=== PATIENT | male | born 1985 | race Caucasian/White ===

== ENCOUNTER 2022-01-25 22:23 | Emergency (ER) | payer MEDICAID ==
[2022-01-25 22:36] VITALS: BP 170/100; PULSE 78; O2SAT 100
[2022-01-25] MEDS ORDERED: KEFLEX 500 MG PO ONE (22:44)
[2022-01-25] MEDS ORDERED: KEFLEX 500 MG ONE (22:48)
--- NOTE | 2022-01-25 22:49 | ERPHSYRPT ---
- History of Present Illness Time Seen by Provider: 01/25/22 22:40 Source: patient Exam Limitations: no limitations Patient Subjective Stated Complaint: pt states "I have a bad tooth and it really has gotten bad the last couple days. I don't want anything for pain cause I used to be in drugs really bad." Triage Nursing Assessment: Pt alert and oriented x3, pt ambulatory to bed by self, pt c/o L upper tooth ache x2 days, pt's left side of face is swollen, pt does not want any thing for pain. pt states "I am just here for some antiobiotics." Physician History: This is a 36-year-old white male who has left upper incisor teeth dental caries and dental pain. This episode came on approximately 2 days ago and is worsened. This morning he noticed some swelling of his left cheek. Patient is allergic to penicillin but has had Keflex in the past without any issues. Patient does not want any narcotic pain medicine. Timing/Duration: gradual onset, days (2) Severity: mild (To moderate) Prearrival Treatment: no prearrival treatment Associated Symptoms: tooth pain (Left upper incisors) Allergies/Adverse Reactions: Penicillins Allergy (Mild, Verified 01/25/22 22:34) Hives Home Medications: Buprenorphine HCl/Naloxone HCl [Suboxone 8 mg-2 mg Sl Film] 8 mg PO DAILY 01/25/22 [History] Hx Tetanus, Diphtheria Vaccination/Date Given: Yes Hx Influenza Vaccination/Date Given: No Hx Pneumococcal Vaccination/Date Given: No Immunizations Up to Date: Yes Travel Risk - International Travel Have you traveled outside of the country in past 3 weeks: No - Coronavirus Screening Are you exhibiting any of the following symptoms?: No Close contact with a COVID-19 positive Pt in past 14-21 Days: No - Vaccine Status Have you recieved a Covid-19 vaccination: No - Review of Systems Constitutional: No Symptoms Eyes: No Symptoms Ears, Nose, & Throat: Other (Left upper incisor dental caries and pain. Left cheek swelling) Respiratory: No Symptoms Cardiac: No Symptoms Abdominal/Gastrointestinal: No Symptoms Genitourinary Symptoms: No Symptoms Musculoskeletal: No Symptoms Skin: No Symptoms Neurological: No Symptoms Psychological: No Symptoms Endocrine: No Symptoms Hematologic/Lymphatic: No Symptoms Immunological/Allergic: No Symptoms All Other Systems: Reviewed and Negative - Past Medical History Pertinent Past Medical History: No Neurological History: No Pertinent History ENT History: No Pertinent History Cardiac History: No Pertinent History Respiratory History: No Pertinent History Endocrine Medical History: No Pertinent History Musculoskeletal History: No Pertinent History GI Medical History: No Pertinent History History: No Pertinent History Psycho-Social History: No Pertinent History Male Reproductive Disorders: No Pertinent History - Past Surgical History Past Surgical History: Yes Other Surgical History: "emergency tooth surgery" per patient - Social History Smoking Status: Current every day smoker Exposure to second hand smoke: No Patient Lives Alone: No - Nursing Vital Signs Nursing Vital Signs: Initial Vital Signs Temperature 98.7 F 01/25/22 22:35 Pulse Rate 78 01/25/22 22:35 Respiratory Rate 18 01/25/22 22:35 Blood Pressure 170/100 01/25/22 22:35 O2 Sat by Pulse Oximetry 100 01/25/22 22:35 Pain Scale Pain Intensity 8 - Physical Exam General Appearance: no apparent distress, alert Eye Exam: bilateral eye: normal inspection, PERRL, EOMI Ear Exam: bilateral ear: auricle normal Nasal Exam: normal inspection Throat Exam: dental tenderness (Left upper incisors with gumline gingivitis. 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 Add Tylenol and ibuprofen for pain control. Take your antibiotics as prescribed. Follow-up with a dentist for definitive care. Prescriptions: Cephalexin Mh 500 mg [Keflex 500 mg] 500 mg PO TID #21 cap
[2022-01-25] MEDS ORDERED: MOTRIN 600 MG PO ONE (22:53)
[2022-01-25] MEDS ORDERED: MOTRIN 600 MG ONE (22:54)
== END 2022-01-25 23:02 | disposition home or self-care (01) ==
LOC: ED 22:23
DX: K02.9 Dental caries, unspecified (principal); K08.89 Other specified disorders of teeth and supporting structures; Z72.0 Tobacco use; Z79.891 Long term (current) use of opiate analgesic; Z28.310 Unvaccinated for COVID-19
CPT/HCPCS: 99282; A9270-GY

== ENCOUNTER 2022-06-23 16:43 | Emergency (ER) | payer BC, MEDICAID ==
--- NOTE | 2022-06-23 17:05 | ERPHSYRPT ---
- History of Present Illness Time Seen by Provider: 06/23/22 17:05 Source: patient Exam Limitations: no limitations Patient Subjective Stated Complaint: Pt states "My lower back started to hurt a couple of days ago and now when I pee it barfield. My ears are messed up and I just feel like crap." Triage Nursing Assessment: PT presented alert and oriented X 3, skin pwd. Pt ambulates with an upright steady gait, able to speak in clear full sentences pt in no apparent respiratory distress. Pt resting comfortably on bed. Physician History: This is a 37-year-old white male patient who is on Zoloft and Suboxone and presents with a 2-day history of dysuria, bilateral flank pain/low back pain and complaints of fever chills body aches and earaches that began last night and have persisted throughout the day today despite the use of 400 mg oral ibuprofen approximately 2 hours prior to arrival. Patient arrives to the emergency department a temperature of 101 F. Patient is a current daily smoker of cigarettes. Patient states that he drove himself into the emergency department and cannot get a ride home. I obtained the history from the patient directly. Timing/Duration: day(s) (2), worse Method of Injury: other (No injury) Quality: burning Back Pain Location: paraspinous muscles (Bilateral) Severity of Pain-Max: mild (To moderate) Severity of Pain-Current: mild (To moderate) Modifying Factors: Improves With: movement Associated Symptoms: fever, chills, lower back pain, No urinary incontinence, No loss of bowel control, No nausea, No vomiting, No problems urinating, No numbness in legs/feet, No weakness Previous symptoms: no prior history Allergies/Adverse Reactions: Penicillins Allergy (Mild, Verified 01/25/22 22:34) Hives Home Medications: Buprenorphine HCl/Naloxone HCl [Suboxone 8 mg-2 mg Sl Film] 8 mg PO DAILY 01/25/22 [History] Sertraline HCl 50 mg [Zoloft 50 mg Tablet] 50 mg PO DAILY 06/23/22 [History] Hx Tetanus, Diphtheria Vaccination/Date Given: Yes Hx Influenza Vaccination/Date Given: No Hx Pneumococcal Vaccination/Date Given: No Immunizations Up to Date: Yes Travel Risk - International Travel Have you traveled outside of the country in past 3 weeks: No - Coronavirus Screening Are you exhibiting any of the following symptoms?: Yes Symptoms: Fever, Headaches/Body Aches/Fatigue Close contact with a COVID-19 positive Pt in past 14-21 Days: No - Vaccine Status Have you recieved a Covid-19 vaccination: No - Review of Systems Constitutional: Fever, Chills Eyes: No Symptoms Ears, Nose, & Throat: No Symptoms Respiratory: No Symptoms Cardiac: No Symptoms Abdominal/Gastrointestinal: No Symptoms Genitourinary Symptoms: Dysuria, Flank Pain (Bilateral) Musculoskeletal: Arthralgias, Myalgias Skin: No Symptoms Neurological: No Symptoms Psychological: No Symptoms Endocrine: No Symptoms Hematologic/Lymphatic: No Symptoms Immunological/Allergic: No Symptoms All Other Systems: Reviewed and Negative - Past Medical History Pertinent Past Medical History: No Neurological History: No Pertinent History ENT History: No Pertinent History Cardiac History: No Pertinent History Respiratory History: No Pertinent History Endocrine Medical History: No Pertinent History Musculoskeletal History: No Pertinent History GI Medical History: No Pertinent History History: No Pertinent History Psycho-Social History: No Pertinent History Male Reproductive Disorders: No Pertinent History - Past Surgical History Past Surgical History: Yes Other Surgical History: "emergency tooth surgery" per patient - Social History Smoking Status: Current every day smoker Exposure to second hand smoke: No Drug Use: none Patient Lives Alone: No - Nursing Vital Signs Nursing Vital Signs: Initial Vital Signs Temperature 101.0 F 06/23/22 16:50 Pulse Rate 91 H 06/23/22 16:50 Respiratory Rate 22 06/23/22 16:50 Blood Pressure 158/87 06/23/22 16:50 O2 Sat by Pulse Oximetry 100 06/23/22 16:50 Pain Scale Pain Intensity [Anterior/ 5 Posterior Generalized] Pain Intensity 5 - Physical Exam General Appearance: no apparent distress, alert, anxiety Eye Exam: PERRL/EOMI, eyes nml inspection Ears, Nose, Throat Exam: normal ENT inspection, moist mucous membranes Neck Exam: normal inspection, non-tender, supple, full range of motion Respiratory Exam: normal breath sounds, lungs clear, airway intact, No chest tenderness, No respiratory distress Cardiovascular Exam: regular rate/rhythm, normal heart sounds, normal peripheral pulses Gastrointestinal Exam: soft, normal bowel sounds, No tenderness Rectal Exam: not done Back Exam: normal range of motion, CVA tenderness (Mild bilateral) Extremity Exam: normal inspection, normal range of motion, pelvis stable Neurologic Exam: alert, oriented x 3, cooperative, 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 as tested, normal mood/affect, nml cerebellar function, nml station & gait, sensation nml Skin Exam: normal color, warm, dry Lymphatic Exam: No adenopathy SpO2 Interpretation: normal SpO2: 100 O2 Delivery: Room Air - Course Nursing assessment & vital signs reviewed: Yes Ordered Tests: Active Orders 24 hr Category Date Time Status CULTURE,URINE Stat Lab 06/23/22 17:55 Received UA W/RFX UR CULTURE Stat Lab 06/23/22 17:55 Completed Medication Summary Discontinued Medications Generic Name Dose Route Start Last Admin Trade Name Idania PRN Reason Stop Dose Admin Acetaminophen 650 mg 06/23/22 17:35 06/23/22 17:56 Acetaminophen 325 Mg Tablet PO 06/23/22 17:36 650 mg STAT STA Administration Acetaminophen Confirm 06/23/22 17:55 Acetaminophen 325 Mg Tablet Administered 06/23/22 17:56 Dose 650 mg .ROUTE .STK-MED ONE Ceftriaxone Sodium 1,000 mg 06/23/22 20:02 Ceftriaxone Sodium 1000 Mg Inj Vial IM 06/23/22 20:03 STAT ONE Ibuprofen 400 mg 06/23/22 17:36 06/23/22 17:56 Ibuprofen 400 Mg Tablet PO 06/23/22 17:37 400 mg STAT ONE Administration Ibuprofen Confirm 06/23/22 17:55 Ibuprofen 400 Mg Tablet Administered 06/23/22 17:56 Dose 400 mg .ROUTE .STK-MED ONE Lab/Rad Data: Laboratory Results 06/23/22 06/23/22 06/23/22 Range/Units 17:55 17:55 17:55 Urine Color Yellow (Yellow) Urine Appearance Clear (Clear) Urine pH 5.5 (4.6-8.0) Ur Specific Bentley >=1.030 A (1.005-1.030) Urine Protein 30 (Negative) Urine Glucose (UA) Negative (Negative) mg/dL Urine Ketones Trace A (Negative) Urine Blood Large A (Negative) Urine Nitrite Negative (Negative) Urine Bilirubin Negative (Negative) Urine Urobilinogen 1.0 A (0.2) mg/dL Ur Leukocyte Esterase Small A (Negative) U Hyaline Cast (Auto) NONE SEEN (0-2) /LPF Urine Microscopic RBC 21-50 A (0-5) /HPF Urine Microscopic WBC 21-50 A (0-5) /HPF Ur Epithelial Cells Few (None Seen) /HPF Urine Bacteria None Seen (None Seen) /HPF Urine Culture Reflexed YES (NO) Influenza Type A Ag NEGATIVE (NEGATIVE) Influenza Type B Ag NEGATIVE (NEGATIVE) RSV (PCR) NEGATIVE (Negative) SARS-CoV-2 (PCR) NEGATIVE (NEGATIVE) Group A Strep Antibody NOT DETECTED (NEGATIVE) - Progress Progress: improved, pain not gone completely Progress Note: 06/23/22 20:07 Medical decision making: This patient definitely has a urinary tract infection. He also has hematuria present. We will treat his urinary tract infection. He was also told that there is a possibility that he may have a ureteral stone. However, clinically, he is not acting as if he has this type of issue. The patient wants to go home after receiving injection of an antibiotic. He has family he needs to take care of and he has the only vehicle. Patient's medical issue is of low complexity. This was based on patient's history, physical findings and laboratory results. Patient is aware that there is a possibility ureteral stone his symptoms might persist or worsen. However, he does not want to have a CAT scan performed at this time. We discussed the discharge management including continue antibiotics and increase clear liquid intake orally. In addition he can alternate Tylenol and ibuprofen every 4 hours for fever and pain control. He was also told he may return to the emergency department if symptoms worsen Counseled pt/family regarding: lab results, diagnosis, need for follow-up - Departure Departure Disposition: Home Clinical Impression: UTI (urinary tract infection), Hematuria, Fever Condition: Stable Critical Care Time: No Referrals: DOCTOR,NO FAMILY [Primary Care Provider] - Follow up/PCP as directed Additional Instructions: Drink plenty of clear liquids. Alternate Tylenol and ibuprofen every 4 hours as discussed for fever and pain control. Take your antibiotic as prescribed. If your symptoms worsen, follow-up with your primary care physician or with the emergency department. Forms: Work/School Release Form Prescriptions: Ciprofloxacin [Cipro 500 MG] 500 mg PO BID #14 tablet
[2022-06-23] MEDS ORDERED: TYLENOL 325 MG PO STA (17:35)
[2022-06-23] MEDS ORDERED: MOTRIN 400 MG PO ONE (17:36)
[2022-06-23] MEDS ORDERED: MOTRIN 400 MG ONE (17:55)
[2022-06-23] MEDS ORDERED: TYLENOL 325 MG ONE (17:55)
[2022-06-23 18:27] LABS: Appearance Clear (Clear); Bacteria None Seen /HPF (None Seen); Bilirubin Negative (Negative); Blood Large (Negative); Epithelial Cells Few /HPF (None Seen); Glucose, Urine Negative (Negative); Hyaline Casts NONE SEEN /LPF (0-2); Ketones Trace (Negative); Leukocyte Esterase Small (Negative); Nitrite Negative (Negative); Ph 5.5 (4.6-8.0); Protein,Urine Dip 30 (Negative); RBC 21-50 /HPF (0-5); Specific Gravity >=1.030 (1.005-1.030); WBC 21-50 /HPF (0-5)
[2022-06-23 18:29] LABS: ADD URINE CULTURE? YES (NO)
[2022-06-23 18:46] LABS: INFLUENZA A NEGATIVE (NEGATIVE); INFLUENZA B NEGATIVE (NEGATIVE); RESPIRATORY SYNCTIAL VIRUS NEGATIVE (Negative); SARS-CoV-2 Xpert Express NEGATIVE (NEGATIVE)
[2022-06-23] MEDS ORDERED: Rocephin 1000 MG INJ IM ONE (20:02)
[2022-06-23 20:06] VITALS: BP 127/85; PULSE 73
[2022-06-23 20:11] VITALS: O2SAT 100
[2022-06-23] MEDS ORDERED: Rocephin 1000 MG INJ ONE (20:11)
[2022-06-23] MEDS ORDERED: XYLOCAINE 1% HCL 20 ML MDV ONE (20:11)
== END 2022-06-23 20:36 | disposition home or self-care (01) ==
LOC: ED 16:43
DX: N39.0 Urinary tract infection, site not specified (principal); R31.9 Hematuria, unspecified; R50.9 Fever, unspecified; R30.0 Dysuria; R10.9 Unspecified abdominal pain; M54.50 Low back pain, unspecified; Z79.891 Long term (current) use of opiate analgesic; Z28.310 Unvaccinated for COVID-19; Z72.0 Tobacco use
CPT/HCPCS: 0241U; 81001; 87086; 87651; 96372; 99283; 87077; 87186; J0696; A9270-GY